=== PATIENT | male | born 1985 | race Hispanic/Latino ===

== ENCOUNTER 2019-05-28 17:00 | Emergency (ER) | payer SELFPAY ==
[2019-05-28 18:01] LABS: URINE BLOOD DIPSTICK NEGATIVE (NEGATIVE); URINE COLOR YELLOW; URINE GLUCOSE - DIPSTICK NEGATIVE (NEGATIVE); URINE KETONE NEGATIVE (NEGATIVE); URINE LEUK ESTERASE NEGATIVE (NEGATIVE); URINE NITRITE - DIPSTICK NEGATIVE (Negative); URINE PH 5.5 (4.5-8.0); URINE PROTEIN - DIPSTICK NEGATIVE (NEG-TRACE); URINE SPECIFIC GRAVITY >=1.030
[2019-05-28 18:03] LABS: URINE BILIRUBIN - DIPSTICK NEGATIVE (NEGATIVE)
[2019-05-28] MEDS ORDERED: DOXYCYCL HYC100 MG PO (18:07)
[2019-05-28] MEDS ORDERED: ZITHROMAX250 MG PO (18:07)
[2019-05-28 18:35] VITALS: BP 136/78
== END 2019-05-28 18:35 | disposition home or self-care (01) | DRG 607 ==
LOC: ED 17:00
PROVIDERS: Emergency Medicine
DX: L73.9 Follicular disorder, unspecified (principal); Z20.2 Contact with and (suspected) exposure to infections with a predominantly sexual mode of transmission